=== PATIENT | male | born 2000 | race Caucasian/White ===

== ENCOUNTER 2021-02-19 00:04 | Emergency (ER) | payer OTHER ==
[~2021-02-19] VITALS: Ht 167.7 cm; Wt 74.8 kg
[2021-02-19 00:17] VITALS: BP 146/95
--- NOTE | 2021-02-19 00:19 | ED GU-Male ---
General Stated Complaint: NAUSEA/SHAKINESS History of Present Illness Date Seen by Provider: Feb 19, 2021 Time Seen by Provider: 00:14 Initial Comments 28-year-old male presents with right testicular pain. Patient reports it started after he "scratched really hard" he had some brief nausea. He reports that it feels like "water down his testicle" patient denies any chance of STD. Patient denies any flank pain. Allergies and Home Medications Allergies Coded Allergies: No Known Drug Allergies (Unverified , 02/19/21) Patient Home Medication List Home Medication List Reviewed: Yes Doxycycline Hyclate (Doxycycline Hyclate) 100 Mg Tablet, 100 MG PO BID Prescribed by: KAEL DE SANTIAGO on 02/19/21 0056 Review of Systems Review of Systems Constitutional: No chills, No fever Respiratory: no symptoms reported Cardiovascular: no symptoms reported Gastrointestinal: No abdominal pain; nausea; No vomiting Genitourinary: see HPI, pain Musculoskeletal: no symptoms reported Skin: no symptoms reported Psychiatric/Neurological: No Symptoms Reported Endocrine: No Symptoms Reported Physical Exam Vital Signs Vital Signs - First Documented 02/19/21 00:17 Temp 37.0 Pulse 101 Resp 20 B/P (MAP) 146/95 (112) Pulse Ox 97 O2 Delivery Room Air Capillary Refill : Height, Weight, BMI Height: '" Weight: lbs. oz. kg; BMI Method: General Appearance: WD/WN, no apparent distress Cardiovascular: normal peripheral pulses, regular rate, rhythm Respiratory: lungs clear, normal breath sounds Gastrointestinal: non tender Male: normal genitalia, testicular tenderness, other (normal exam besides mild tenderness,brisk cremaster, ) Neurologic/Psychiatric: alert, normal mood/affect, oriented x 3 Progress/Results/Core Measures Suspected Sepsis SIRS Temperature: Pulse: Respiratory Rate: Blood Pressure / Mean: Results/Orders Lab Results Laboratory Tests Test 02/19/21 00:33 Range/Units Urine Color YELLOW Urine Clarity SLIGHTLY CLOUDY Urine pH 7.5 5-9 Urine Specific [place] 1.020 1.016-1.022 Urine Protein 1+ H NEGATIVE Urine Glucose (UA) NEGATIVE NEGATIVE Urine Ketones 1+ H NEGATIVE Urine Nitrite NEGATIVE NEGATIVE Urine Bilirubin NEGATIVE NEGATIVE Urine Urobilinogen 0.2 < = 1.0 MG/DL Urine Leukocyte Esterase NEGATIVE NEGATIVE Urine RBC (Auto) NEGATIVE NEGATIVE Urine RBC 2-5 H /HPF Urine WBC 5-10 H /HPF Urine Squamous Epithelial Cells 2-5 /HPF Urine Crystals NONE /LPF Urine Bacteria MODERATE H /HPF Urine Casts PRESENT /LPF Urine Hyaline Casts 5-10 H /LPF Urine Granular Casts 0-2 H /LPF Urine Mucus LARGE H /LPF Urine Culture Indicated YES My Orders Orders - KAEL DE SANTIAGO DO Ua Culture If Indicated (02/19/21 00:21) Ketorolac Injection (Toradol Injection) (02/19/21 00:21) Urine Culture (02/19/21 00:33) Vital Signs/I&O 02/19/21 00:17 Temp 37.0 Pulse 101 Resp 20 B/P (MAP) 146/95 (112) Pulse Ox 97 O2 Delivery Room Air Capillary Refill : Progress Note : Progress Note Patient with UTI with hematuria. I did discuss with her the possibility of a kidney stone but he does not feel that it would be a stone and does not want any imaging. Patient was offered Toradol for the discomfort but declined. Patient's exam showed a low-lying right testicle, brisk cremaster with very low likelihood of a torsion. Patient started on doxycycline. Recommend he follow- up return to the ER if symptoms return. I suspect he may have epididymitis. Patient reports that he is still a virgin so I did not test him for an STD. Departure Impression Primary Impression: Testicular pain, right Additional Impression: Urinary tract infection Qualified Codes: N39.0 - Urinary tract infection, site not specified; R31.9 - Hematuria, unspecified Disposition: 01 HOME, SELF-CARE Condition: Stable Departure-Patient Inst. Referrals: NO,LOCAL PHYSICIAN (PCP/Family) Primary Care Physician Patient Instructions: Epididymitis (DC), Testicular Injury, Urinary Tract Infections in Adults Add. Discharge Instructions: Tylenol ibuprofen as needed for discomfort Please start antibiotic in the morning Scripts Doxycycline Hyclate (Doxycycline Hyclate) 100 Mg Tablet 100 MG PO BID, #20 TAB 0 Refills Prov: KAEL DE SANTIAGO DO 02/19/21 KAEL DE SANTIAGO DO Feb 19, 2021 00:19
[2021-02-19] MEDS: KETOROLAC 30 MG/ML VIAL IM STA ×2 (00:30→00:31)
[2021-02-19 00:46] LABS: BACTERIA,URINE MODERATE /HPF; BILIRUBIN,URINE NEGATIVE (NEGATIVE); CLARITY,URINE SLIGHTLY CLOUDY; COLOR,URINE YELLOW; GLUCOSE, URINE (UA) NEGATIVE (NEGATIVE); KETONES,URINE 1+ (NEGATIVE); LEUKOCYTE ESTERASE ,URINE NEGATIVE (NEGATIVE); NITRITE,URINE NEGATIVE (NEGATIVE); PH,URINE 7.5 (5-9); PROTEIN,URINE 1+ (NEGATIVE)
[2021-02-19 00:47] LABS: GRANULAR CASTS,URINE 0-2 /LPF
[2021-02-19] MEDS ORDERED: DOXY100T2 PO (00:56)
== END 2021-02-19 00:58 | disposition home or self-care (01) ==
LOC: EDBD 00:09 → ER FS 00:09
DX: N50.811 Right testicular pain (principal); N39.0 Urinary tract infection, site not specified
CPT/HCPCS: 81000; 87088; 99282

== ENCOUNTER → 2021-08-20 | Outpatient (CLI) | payer OTHER ==
[~2021-08-20] MED LIST: DOXY100T2 PO
[2021-08-20 12:38] LABS: HEMATOCRIT 46 % (40-54); HEMOGLOBIN 15.7 g/dL (13.3-17.7); MEAN CORPUSCULAR HEMOGLOBIN 25 pg (25-34); MEAN CORPUSCULAR HGB CONC 35 g/dL (32-36); MEAN CORPUSCULAR VOLUME 72 fL (80-99); MEAN PLATELET VOLUME 9.8 fL (9.0-12.2); PLATELET COUNT 270 10^3/uL (130-400); WHITE BLOOD COUNT 5.9 10^3/uL (4.3-11.0)
[2021-08-20 12:39] LABS: BASOPHILS # (AUTO) 0.1 10^3/uL (0.0-0.1); BASOPHILS % (AUTO) 1 % (0-10); EOSINOPHILS # (AUTO) 0.1 10^3/uL (0.0-0.3); EOSINOPHILS % (AUTO) 1 % (0-10); LYMPHOCYTES # (AUTO) 2.9 X 10^3 (1.0-4.0); LYMPHOCYTES % (AUTO) 50 % (12-44); MONOCYTES # (AUTO) 0.4 X 10^3 (0.0-1.0); MONOCYTES % (AUTO) 7 % (0-12); NEUTROPHILS # (AUTO) 2.4 X 10^3 (1.8-7.8); NEUTROPHILS % (AUTO) 41 % (42-75)
[2021-08-20 12:40] LABS: RETICULOCYTE % 1.12 % (0.50-2.40)
[2021-08-20 12:41] LABS: ATYPICAL LYMPHOCYTES 36 %; BAND NEUTROPHILS 5 %; BASOPHILS % (MANUAL) 0 %; EOSINOPHILS % (MANUAL) 0 %; LYMPHOCYTES % (MANUAL) 16 %; MONOCYTES % (MANUAL) 6 %; NEUTROPHILS % (MANUAL) 37 %; PLATELET ESTIMATE NORMAL
[2021-08-20 12:42] LABS: MICROCYTOSIS MODERATE
== END ==
LOC: LAB FS 10:36
PROVIDERS: ATTEND Nurse Practitioner Family
DX: R71.8 Other abnormality of red blood cells (principal)
CPT/HCPCS: 36415; 85007; 85027; 85045; 85055

== ENCOUNTER 2022-01-01 16:10 | Emergency (ER) | payer OTHER ==
[~2022-01-01] VITALS: Ht 167.7 cm; Wt 67.0 kg
[2022-01-01 16:44] LABS: BASOPHILS % (AUTO) 0 % (0-10); EOSINOPHILS % (AUTO) 0 % (0-10); HEMATOCRIT 46 % (40-54); HEMOGLOBIN 15.6 g/dL (13.3-17.7); LYMPHOCYTES # (AUTO) 2.9 10^3/uL (1.0-4.0); LYMPHOCYTES % (AUTO) 27 % (12-44); MEAN CORPUSCULAR HEMOGLOBIN 25 pg (25-34); MEAN CORPUSCULAR HGB CONC 34 g/dL (32-36); MEAN CORPUSCULAR VOLUME 73 fL (80-99); MEAN PLATELET VOLUME 9.7 fL (9.0-12.2); MONOCYTES # (AUTO) 0.7 10^3/uL (0.0-1.0); MONOCYTES % (AUTO) 6 % (0-12); NEUTROPHILS % (AUTO) 66 % (42-75); PLATELET COUNT 257 10^3/uL (130-400); WHITE BLOOD COUNT 10.6 10^3/uL (4.3-11.0)
[2022-01-01] MEDS ORDERED: IBUPROFEN 600 MG (MOTRIN) TAB PO STA (17:07)
[2022-01-01 17:11] LABS: BILIRUBIN,URINE NEGATIVE (NEGATIVE); CLARITY,URINE CLEAR; COLOR,URINE YELLOW; GLUCOSE, URINE (UA) NEGATIVE (NEGATIVE); KETONES,URINE NEGATIVE (NEGATIVE); LEUKOCYTE ESTERASE ,URINE NEGATIVE (NEGATIVE); NITRITE,URINE NEGATIVE (NEGATIVE); PH,URINE 6.5 (5-9); PROTEIN,URINE 1+ (NEGATIVE)
[2022-01-01 17:14] LABS: ALKALINE PHOSPHATASE 80 U/L (40-136); BILIRUBIN,TOTAL 0.9 MG/DL (0.1-1.0); BUN/CREATININE RATIO 15; CALCIUM 10.1 MG/DL (8.5-10.1); CARBON DIOXIDE 25 MMOL/L (21-32); CHLORIDE 99 MMOL/L (98-107); CREATININE SERUM 0.89 MG/DL (0.60-1.30); GFR ESTIMATED 124; GLUCOSE 98 MG/DL (70-105); POTASSIUM 4.1 MMOL/L (3.6-5.0); SODIUM 137 MMOL/L (135-145)
[2022-01-01 17:15] LABS: ACETAMINOPHEN < 10 UG/ML (10-30); ALANINE AMINOTRANSFERASE 22 U/L (0-55); ALBUMIN 5.5 GM/DL (3.2-4.5); SALICYLATE < 0.3 MG/DL (5.0-20.0); TOTAL PROTEIN 8.9 GM/DL (6.4-8.2)
--- NOTE | 2022-01-01 17:17 | ED Psychosocial ---
General Chief Complaint: Suicidal Ideation Risk Stated Complaint: SUICIDAL Nursing Triage Note: PT AMBULATE TO ROOM FS04 WITH C/O SUICIDAL THOUGHTS. PT WAS BROUGHT FROM [facility] FOR SI. PT STATES THAT HE HAD THOUGHTS OF TAKING A GUN FROM DAD'S OR FRIEND'S GUN SAFE AND SHOOTING SELF. PT STATES THAT HE HAS VISIONS OF A KNIFE IN HIS CHEST. PT REPORTS HAVING AN ARGUMENT WITH HIS MOTHER TODAY BECAUSE HE SPILLED SOME WATER. PT STATES THAT HIS MOTHER IS ALWAYS YELLING AT HIM AND THAT HE DOES NOT GET ALONG WELL WITH MOTHER OR OLDER BROTHER. PT STATES THAT HE TOOK A SHOWER TODAY AND THAT HIS WHOLE BODY "FELT NUMB". PT STATES THAT HE DOES NOT HAVE SUICIDAL THOUGHTS UPON ARRIVAL AND THAT HE HAS NOT HAD THOUGHTS OF HARMING OTHERS. Source: patient History of Present Illness Date Seen by Provider: Jan 01, 2022 Time Seen by Provider: 16:18 Initial Comments 21-year-old male presenting from the [facility] for suicidal ideation. He was having extra stress with his family and he lives at home with his family. He states that he was having thoughts of taking a knife and putting it in his chest or taking his dad's gun and shooting himself. He reports that he had accidentally spilled some water earlier in the small the deltoid on the BiPAP. He feels like his mom and family are always yelling at him. He does not feel like he can talk to his family or any friends about what is going on in his personal life. He had taken an extra dose of his fluoxetine to try and help with his suicidal thoughts. He had better gone to the clinic and was speaking with the staff there. When they learned that he was having suicidal thoughts that brought him here to the emergency department. He states that he is not currently having any more thoughts of suicide or hurting himself. The age of 13 he had tried to cut his wrist. He feels like he would be safe going home and states that he cannot miss work and cannot let his family know about what was going on. Timing/Duration: this afternoon, gone now Severity: moderate Associated Symptoms: anxiety, impaired concentration, suicidal ideation Allergies and Home Medications Allergies Coded Allergies: No Known Drug Allergies (Unverified , 02/19/21) Patient Home Medication List Home Medication List Reviewed: Yes Doxycycline Hyclate (Doxycycline Hyclate) 100 Mg Tablet, 100 MG PO BID Prescribed by: KAEL DE SANTIAGO on 02/19/21 0056 Review of Systems Constitutional: No chills, No fever EENTM: no symptoms reported Respiratory: no symptoms reported Cardiovascular: no symptoms reported Gastrointestinal: no symptoms reported Genitourinary: no symptoms reported Musculoskeletal: no symptoms reported Skin: no symptoms reported Psychiatric/Neurological: Depressed, Emotional Problems Past Tltrbsj-Fnkeow-Tgomak Hx Patient Social History Tobacco Use?: No Smoking Status: Never a Smoker Smokeless Tobacco Frequency: Never a User Use of E-Cig and/or Vaping dev: No Use of E-Cig and/or Vaping Renato: Never a User Substance use?: No Alcohol Use?: No Pt feels they are or have been: No Immunizations Up To Date 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 oz. kg; 23.00 BMI Method: General Appearance: no apparent distress, other (Flat Affect) HEENT: PERRL/EOMI, pharynx normal Neck: non-tender, full range of motion, supple, normal inspection Respiratory: chest non-tender, lungs clear, normal breath sounds, no respiratory distress, no accessory muscle use Cardiovascular: normal peripheral pulses, regular rate, rhythm Gastrointestinal: normal bowel sounds, non tender, soft, no pulsatile mass Extremities: normal range of motion, non-tender, no calf tenderness, normal capillary refill Neurologic/Psychiatric: research interviewer II-XII nml as tested, no motor/sensory deficits, alert, oriented x 3 Appearance/Memory: appropriate appearance, appropriate insight, neat Behavior/Eye Contact: cooperative, avoids eye contact Thoughts/Hallucinations: no apparent hallucination Skin: normal color, warm/dry Suicide Risk Suicide Risk Suicide Risk Level / RN Screen: Moderate Low Suicide Risk Level []Suicidal Ideation WITHOUT method, intent, plan or behavior more than a month ago []]Modifiable risk factors and strong protective factors []No reported history of suicidal ideation or behavior []Patient reports/exhibits symptoms consistent with psychosis []Patient reports a plan that would be unrealistic/impossible to complete and intent []Suicide attempt prior to arrival (Indicates at LEAST Low Suicide Risk, consider other risk factors) Moderate Suicide Risk Level: [x]Suicidal ideation with method, WITHOUT plan, intent or behavior in the past month [x]Multiple risk factors and few protective factors []Patient reports intent to follow through on plan to end life if allowed to leave hospital, and has attempted to elope from the hospital High Suicide Risk Level: [] Suicidal ideation with intent or intent with a plan in the past month [] Patient has harmed self or attempted suicide while in the hospital [] Patient has hx of or current Command Auditory hallucinations to harm self or others that they follow without hesitation [] Patient refuses to disclose plan, and indicates intent to complete [] Patient reports plan that is possible to accomplish and/or has means to complete Risk factors supporting recommendation: [] Non-compliance with treatment (acute or chronic) [x] Patient has access to or owns firearms and/or stockpiled medications [x] Hx Impulsive behavior [] Pending incarceration or homelessness [] Sexual abuse [] Family history and/or exposure to suicide [] Adverse childhood experiences [x] Exposure to violence or negative socio-political cultural, and economic forces [] Current or hx of substance use/abuse [] Chronic physical pain or other acute medical problem (AIDS, COPD, Cancer, etc) [x] Perceived burden on family or others [] Patient has attempted to elope [] Unable to answer and/or unable to identify [] Refuses to agree to a safety plan Protective Factors supporting recommendation: [x] Identifies reasons for living [x] Future plans/goals [x] Engaged in work or School [] Good family support network [] Good social support network [x] Responsibility to family [] Belief that suicide is immoral, against their faith beliefs [] High spirituality and involvement in mormonism community [x] Fear of or dying due to pain and suffering [] Established outpt psychiatric services [] Unable to answer and/or unable to identify Risk Assessment Tool Score: Moderate Progress/Results/Core Measures Results/Orders Lab Results Laboratory Tests Test 01/01/22 16:39 01/01/22 16:56 01/01/22 17:07 Range/Units White Blood Count 10.6 4.3-11.0 10^3/uL Red Blood Count 6.32 H 4.30-5.52 10^6/uL Hemoglobin 15.6 13.3-17.7 g/dL Hematocrit 46 40-54 % Mean Corpuscular Volume 73 L 80-99 fL Mean Corpuscular Hemoglobin 25 25-34 pg Mean Corpuscular Hemoglobin Concent 34 32-36 g/dL Red Cell Distribution Width 14.0 10.0-14.5 % Platelet Count 257 130-400 10^3/uL Mean Platelet Volume 9.7 9.0-12.2 fL Immature Granulocyte % (Auto) 0 % Neutrophils (%) (Auto) 66 42-75 % Lymphocytes (%) (Auto) 27 12-44 % Monocytes (%) (Auto) 6 0-12 % Eosinophils (%) (Auto) 0 0-10 % Basophils (%) (Auto) 0 0-10 % Neutrophils # (Auto) 7.0 1.8-7.8 10^3/uL Lymphocytes # (Auto) 2.9 1.0-4.0 10^3/uL Monocytes # (Auto) 0.7 0.0-1.0 10^3/uL Eosinophils # (Auto) 0.0 0.0-0.3 10^3/uL Basophils # (Auto) 0.0 0.0-0.1 10^3/uL Immature Granulocyte # (Auto) 0.0 0.0-0.1 10^3/uL Sodium Level 137 135-145 MMOL/L Potassium Level 4.1 3.6-5.0 MMOL/L Chloride Level 99 98-107 MMOL/L Carbon Dioxide Level 25 21-32 MMOL/L Anion Gap 13 5-14 MMOL/L Blood Urea Nitrogen 13 7-18 MG/DL Creatinine 0.89 0.60-1.30 MG/DL Estimat Glomerular Filtration Rate 124 BUN/Creatinine Ratio 15 Glucose Level 98 70-105 MG/DL Calcium Level 10.1 8.5-10.1 MG/DL Corrected Calcium 8.5-10.1 MG/DL Total Bilirubin 0.9 0.1-1.0 MG/DL Aspartate Amino Transf (AST/SGOT) 17 5-34 U/L Alanine Aminotransferase (ALT/SGPT) 22 0-55 U/L Alkaline Phosphatase 80 40-136 U/L Total Protein 8.9 H 6.4-8.2 GM/DL Albumin 5.5 H 3.2-4.5 GM/DL Salicylates Level < 0.3 L 5.0-20.0 MG/DL Acetaminophen Level < 10 L 10-30 UG/ML Serum Alcohol < 10 <10 MG/DL SARS-CoV-2 RNA (RT-PCR) Not Detected Not Detecte Urine Color YELLOW Urine Clarity CLEAR Urine pH 6.5 5-9 Urine Specific [place] 1.025 H 1.016-1.022 Urine Protein 1+ H NEGATIVE Urine Glucose (UA) NEGATIVE NEGATIVE Urine Ketones NEGATIVE NEGATIVE Urine Nitrite NEGATIVE NEGATIVE Urine Bilirubin NEGATIVE NEGATIVE Urine Urobilinogen 0.2 < = 1.0 MG/DL Urine Leukocyte Esterase NEGATIVE NEGATIVE Urine RBC (Auto) NEGATIVE NEGATIVE Urine RBC 0-2 /HPF Urine WBC 0-2 /HPF Urine Squamous Epithelial Cells 0-2 /HPF Urine Crystals NONE /LPF Urine Bacteria FEW H /HPF Urine Casts PRESENT /LPF Urine Hyaline Casts 0-2 H /LPF Urine Mucus LARGE H /LPF Urine Culture Indicated NO Urine Opiates Screen NEGATIVE NEGATIVE Urine Oxycodone Screen NEGATIVE NEGATIVE Urine Methadone Screen NEGATIVE NEGATIVE Urine Propoxyphene Screen NEGATIVE NEGATIVE Urine Barbiturates Screen NEGATIVE NEGATIVE Ur Tricyclic Antidepressants Screen NEGATIVE NEGATIVE Urine Phencyclidine Screen NEGATIVE NEGATIVE Urine Amphetamines Screen NEGATIVE NEGATIVE Urine Methamphetamines Screen NEGATIVE NEGATIVE Urine Benzodiazepines Screen POSITIVE H NEGATIVE Urine Cocaine Screen NEGATIVE NEGATIVE Urine Cannabinoids Screen NEGATIVE NEGATIVE My Orders Orders - JACKIE SOLORZANO MD Ua Culture If Indicated (01/01/22 16:28) Cbc With Automated Diff (01/01/22 16:28) Comprehensive Metabolic Panel (01/01/22 16:28) Alcohol (01/01/22 16:28) Drug Screen Stat (Urine) (01/01/22 16:28) Acetaminophen (01/01/22 16:28) Salicylate (01/01/22 16:28) Ekg Tracing (01/01/22 16:28) Monitor-Rhythm Ecg Trace Only (01/01/22 16:28) Bh Status Checks/Observation Q15M (01/01/22 16:28) Covid 19 Inhouse Test (01/01/22 16:28) Ibuprofen Tablet (Motrin Tablet) (01/01/22 17:07) Vital Signs/I&O 01/01/22 01/01/22 16:20 20:10 Temp 36.4 Pulse 87 78 Resp 14 16 B/P (MAP) 134/99 (111) 115/80 Pulse Ox 99 O2 Delivery Room Air Room Air Blood Pressure Mean: 111 Progress Progress Note #1: Progress Note Obtain basic labs and urinalysis to screen for a medical standpoint. Once those are back we will have mental health evaluate the patient. As far as his headache, will give ibuprofen and encourage fluids. Dim the lights and let him rest. Progress Note #2: Time: 17:30 Progress Note Labs are stable without acute significant abnormality to indicate medical condition for this suicidal ideation. He did not have alcohol, salicylate, acetaminophen in his blood. He did have Benzodiazepines in his UDS. UA was slightly concentrated with elevated specific gravity. ECG without ST elevation or ectopy. Medically clear and stable for evaluation by Mental Health so will reach out to [facility] about obtaining mental health screening. Progress Note #3: Progress Note After speaking with [facility] mental health screener they determined he was safe to go home with a safety plan. Initial ECG Impression Date: Jan 01, 2022 Initial ECG Impression Time: 16:49 Initial ECG Rate: 82 Initial ECG Rhythm: Normal Sinus Initial ECG Comparisson: No Previous ECG Available Comment Normal sinus rhythm with a heart rate of 82 bpm. OR interval [address] elevation. QT interval 338 ms with a QTc interval 377 ms. QRS duration of 85 ms. There is no prior tracing available for comparison Departure Impression Primary Impression: Passive suicidal ideations Additional Impression: Stress reaction Disposition: 01 HOME, SELF-CARE Condition: Stable Departure-Patient Inst. Decision time for Depature: 20:00 Referrals: MARYBEL GORDILLO APRN (PCP) Primary Care Physician [facility]/JENNI (Family) Primary Care Physician Patient Instructions: OUTPT MENTAL HEALTH SERVICES, Tips on Positive Thinking, Stress, Suicide Prevention Add. Discharge Instructions: Follow the safety plan as set up with mental health provider. All discharge instructions reviewed with patient and/or family. Voiced understanding. JACKIE SOLORZANO MD Jan 01, 2022 17:17
[2022-01-01 17:26] LABS: BACTERIA,URINE FEW /HPF; RBC,URINE 0-2 /HPF; SQUAMOUS EPITHELIAL CELL,UR 0-2 /HPF; WBC,URINE 0-2 /HPF
[2022-01-01 17:27] LABS: HYALINE CASTS, URINE 0-2 /LPF
[2022-01-01 17:31] LABS: AMPHETAMINE SCREEN, URINE NEGATIVE (NEGATIVE); BARBITURATE SCREEN URINE NEGATIVE (NEGATIVE); BENZODIAZEPINES SCREEN URINE POSITIVE (NEGATIVE); CANNABINOID SCREEN, URINE NEGATIVE (NEGATIVE); COCAINE SCREEN URINE NEGATIVE (NEGATIVE); METHADONE STAT NEGATIVE (NEGATIVE); OPIATE SCREEN URINE NEGATIVE (NEGATIVE); OXYCODONE STAT NEGATIVE (NEGATIVE); PROPOXYPHENE STAT NEGATIVE (NEGATIVE); TRICYCLIC ANTIDEPRESSANTS SCRE NEGATIVE (NEGATIVE)
[2022-01-01 20:10] VITALS: BP 115/80
== END 2022-01-01 20:10 | disposition home or self-care (01) ==
LOC: EDUNIT# 16:10 → ER FS 16:11
DX: R45.851 Suicidal ideations (principal); F43.9 Reaction to severe stress, unspecified; Z91.51 Personal history of suicidal behavior; Z20.822 Contact with and (suspected) exposure to COVID-19; Z28.310 Unvaccinated for COVID-19
CPT/HCPCS: 36415; 80053; 80306; 80320; 80329; 81000; 85025; 87636; 93005

== ENCOUNTER → 2022-04-09 | Outpatient (CLI) | payer OTHER ==
--- NOTE | 2022-04-09 14:49 | Diagnostic Imaging Report ---
CLINICAL INDICATION: Patient has had nasal congestion x4 years now. EXAM: MRI of the brain performed without IV contrast. Sequences include sagittal T1, axial T2, axial flair, axial gradient echo, DWI, ADC map, and axial T1. COMPARISON: None. FINDINGS: There is no evidence of acute cerebral infarct, intracranial hemorrhage, or gross mass effect. The brain parenchymal volume appears appropriate for patient's age. There is normal serrano-white matter distinction. There is no significant midline shift or herniation. There is no evidence of hydrocephalus. The basal cisterns are unremarkable. The skull, extracranial soft tissue, and orbits are unremarkable. There is minimal ethmoid sinus mucosal thickening. The remainder of the paranasal sinuses are clear. Temporal bones show no significant abnormality. IMPRESSION: 1: Unremarkable MRI of the brain. 2: There is minimal ethmoid sinus mucosal thickening. Dictated by: Dictated on workstation # [id number]
== END ==
LOC: RAD 12:13
PROVIDERS: ATTEND Otolaryngology Otolaryngology/Facial Plastic Surgery
DX: R43.0 Anosmia (principal)
CPT/HCPCS: 70551